=== PATIENT | male | born 1975 | race Caucasian/White ===

== ENCOUNTER 2020-01-01 19:01 | Emergency (ER) | payer BC, OTHER ==
[~2020-01-01] VITALS: Ht 180.3 cm; Wt 83.9 kg
[2020-01-01 20:01] LABS: HEMATOCRIT 44.8 % (42.0-52.0); HEMOGLOBIN 15.7 gm/dL (14.0-18.0); MCH 32.7 pg (26.0-34.0); MCV 93.5 fL (80.0-100.0); PLATELET COUNT 178 thou/uL (150-400); RDW 14.8 % (10.5-14.5); WBC 9.6 thou/uL (4.0-11.0)
[2020-01-01 20:07] LABS: POTASSIUM 3.4 mmol/L (3.5-5.1)
[2020-01-01 20:13] LABS: ALBUMIN 4.6 g/dL (3.4-5.0); TOTAL BILIRUBIN 0.8 mg/dL (0.2-1.0); TOTAL PROTEIN 8.4 g/dL (6.4-8.2)
[2020-01-01 20:33] LABS: ABSOLUTE NEUTROPHILS 7.9 thou/uL (1.4-8.2)
[2020-01-01 21:28] LABS: URINE BILIRUBIN NEGATIVE (Negative); URINE BLOOD 1+ (Negative); URINE CLARITY CLEAR; URINE COLOR YELLOW; URINE GLUCOSE-RANDOM* NEGATIVE (Negative); URINE KETONES NEGATIVE (Negative); URINE LEUKOCYTES-REFLEX NEGATIVE (Negative); URINE NITRITE-REFLEX NEGATIVE (Negative); URINE PROTEIN (DIPSTICK) NEGATIVE (Negative); URINE SPECIFIC GRAVITY <= 1.005 (1.005-1.035); URINE UROBILINOGEN 0.2 E.U./dl (0.2-1.0)
[2020-01-01 21:35] LABS: BACTERIA-REFLEX None Seen /HPF (None Seen); CASTS None Seen /LPF (None Seen); CRYSTALS None Seen /LPF (None Seen); MUCUS None Seen strn/LPF (None Seen); SQUAMOUS None Seen /LPF (0-3); URINE RBC 0-2 Rare /HPF (0-2); URINE WBC-REFLEX None Seen /HPF (0-5)
[2020-01-01] MEDS ORDERED: ZOFRAN ODT4 MG PO (21:57)
[2020-01-01 22:05] VITALS: BP 136/74
== END 2020-01-01 22:05 | disposition home or self-care (01) ==
LOC: ER 19:01
PROVIDERS: Emergency Medicine
DX: R50.9 Fever, unspecified (principal); R11.2 Nausea with vomiting, unspecified; Z88.1 Allergy status to other antibiotic agents; Z20.828 Contact with and (suspected) exposure to other viral communicable diseases

== ENCOUNTER 2020-06-30 15:32 | Emergency (ER) | payer BC, OTHER ==
[~2020-06-30] VITALS: Ht 180.3 cm; Wt 86.2 kg
[~2020-06-30 15:32] MED LIST: ZOFRAN ODT4 MG PO
[2020-06-30 16:34] LABS: ABSOLUTE NEUTROPHILS 9.6 thou/uL (1.4-8.2); BASOPHILS 0.4 % (0.0-2.0); HEMATOCRIT 46.1 % (42.0-52.0); HEMOGLOBIN 15.5 gm/dL (14.0-18.0); LYMPHOCYTES 6.6 % (24.0-44.0); MCH 32.2 pg (26.0-34.0); MCHC 33.6 g/dL (28.0-37.0); MCV 95.8 fL (80.0-100.0); MONOCYTES 9.4 % (1.0-8.0); PLATELET COUNT 238 thou/uL (150-400); POLYS 83.6 % (36.0-66.0); RBC 4.81 mil/uL (4.50-6.00); RDW 14.8 % (10.5-14.5); WBC 11.5 thou/uL (4.0-11.0)
[2020-06-30 16:42] LABS: CALCIUM 9.9 mg/dL (8.5-10.1); CREATININE 1.1 mg/dL (0.7-1.3); POTASSIUM 3.6 mmol/L (3.5-5.1)
[2020-06-30 16:48] LABS: ALBUMIN 4.9 g/dL (3.4-5.0); DIRECT BILIRUBIN 0.3 mg/dL (<0.1-0.2); TOTAL BILIRUBIN 1.4 mg/dL (0.2-1.0); TOTAL PROTEIN 8.7 g/dL (6.4-8.2)
[2020-06-30] MEDS ORDERED: ONDANSETRON HCL4 M2 PO (18:06)
[2020-06-30 18:10] VITALS: BP 155/92
--- NOTE | 2020-07-01 12:45 | EKG ---
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 : 1975 Requested By: Kingsley Zavala Order Number: [id number] MD: Francisco Forrester Measurements Intervals [place] Rate: 104 P: 44 MA: 137 QRS: -43 QRSD: 102 T: -19 QT: 346 QTc: 455 Interpretive Statements Sinus tachycardia Inferior infarct, old Poor R wave progression Baseline wander in lead(s) V1,V2 No previous ECG available for comparison Electronically Signed On 07-01-2020 12:45:14 [employer] by Francisco Forrester [email or web address] <ELECTRONICALLY SIGNED> By: Francisco Forrester MD, [facility] 07/01/20 1245 1652 1652 Francisco Forrester MD, FACC /EPI
== END 2020-06-30 18:30 | disposition home or self-care (01) ==
LOC: ER 15:32
PROVIDERS: Nurse Practitioner
DX: K52.9 Noninfective gastroenteritis and colitis, unspecified (principal); R11.2 Nausea with vomiting, unspecified; Z88.1 Allergy status to other antibiotic agents

== ENCOUNTER 2020-11-29 09:34 | Inpatient (IN) | payer BC, OTHER ==
[~2020-11-29] VITALS: Ht 180.3 cm; Wt 85.7 kg
[~2020-11-29 09:34] MED LIST changes: +ONDANSETRON HCL4 M2 PO
[2020-11-29 09:44] VITALS: BP 179/105
[2020-11-29 10:12] LABS: ABSOLUTE NEUTROPHILS 6.4 thou/uL (1.4-8.2); BASOPHILS 0.7 % (0.0-2.0); HEMATOCRIT 43.6 % (42.0-52.0); HEMOGLOBIN 14.9 gm/dL (14.0-18.0); MCH 33.5 pg (26.0-34.0); MCHC 34.1 g/dL (28.0-37.0); MCV 98.3 fL (80.0-100.0); MONOCYTES 6.4 % (1.0-8.0); PLATELET COUNT 178 thou/uL (150-400); POLYS 86.9 % (36.0-66.0); RBC 4.43 mil/uL (4.50-6.00); RDW 15.8 % (10.5-14.5); WBC 7.4 thou/uL (4.0-11.0)
[2020-11-29 10:26] LABS: ANION GAP 15 mmol/L (7-16); BUN 10 mg/dL (7-18); CALCIUM 9.1 mg/dL (8.5-10.1); CHLORIDE 95 mmol/L (98-107); CO2 25 mmol/L (21-32); GLUCOSE 143 mg/dL (74-106); POTASSIUM 4.1 mmol/L (3.5-5.1); SODIUM 135 mmol/L (136-145)
--- NOTE | 2020-11-29 10:27 | EKG ---
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1975 Requested By: Anni Chisholm Order Number: [id number] MD: Beck Souza Measurements Intervals [place] Rate: 108 P: 62 [place]: 136 QRS: 5 QRSD: 86 T: 30 QT: 312 QTc: 418 Interpretive Statements Sinus tachycardia ST elev, probable normal early repol pattern Compared to ECG 06/30/2020 16:52:13 ST (T wave) deviation now present Myocardial infarct finding no longer present Poor R-wave progression no longer present Electronically Signed On 11-29-2020 10:27:42 CDT by Beck Souza [email or web address] <ELECTRONICALLY SIGNED> By: Beck Souza MD, [facility] 11/29/20 1027 Beck Souza MD, FACC /EPI
[2020-11-29 10:36] LABS: ALBUMIN 4.4 g/dL (3.4-5.0); MAGNESIUM 1.3 mg/dL (1.8-2.4); SGOT 66 U/L (15-37); SGPT 75 U/L (16-63); TOTAL BILIRUBIN 0.5 mg/dL (0.2-1.0); TOTAL PROTEIN 8.1 g/dL (6.4-8.2); TROPONIN-I <0.06 ng/mL (<0.06)
[2020-11-29 11:42] LABS: URINE BILIRUBIN NEGATIVE (Negative); URINE BLOOD NEGATIVE (Negative); URINE CLARITY CLEAR; URINE COLOR YELLOW; URINE GLUCOSE-RANDOM* NEGATIVE (Negative); URINE KETONES NEGATIVE (Negative); URINE LEUKOCYTES-REFLEX NEGATIVE (Negative); URINE NITRITE-REFLEX NEGATIVE (Negative); URINE PROTEIN (DIPSTICK) TRACE (Negative); URINE UROBILINOGEN 0.2 E.U./dl (0.2-1.0)
[2020-11-29 11:51] LABS: AMP/METHAMP Negative (Negative); BARBITURATES Negative (Negative); BENZODIAZEPINES Negative (Negative); COCAINE Negative (Negative); METHADONE Negative (Negative); OPIATES Negative (Negative); PCP Negative (Negative)
[2020-11-29 18:32] VITALS: BP 146/98
[2020-11-29 19:50] VITALS: BP 155/105
[2020-11-30 04:05] VITALS: BP 149/93
[2020-11-30 06:23] LABS: CALCIUM 8.5 mg/dL (8.5-10.1); CREATININE 0.9 mg/dL (0.7-1.3); POTASSIUM 3.5 mmol/L (3.5-5.1)
[2020-11-30 07:41] VITALS: BP 154/107
[2020-11-30 14:57] VITALS: BP 148/11
[2020-11-30 19:17] VITALS: BP 149/106
[2020-12-01 04:25] VITALS: BP 143/96
[2020-12-01 05:50] LABS: CALCIUM 8.4 mg/dL (8.5-10.1); CREATININE 0.8 mg/dL (0.7-1.3); POTASSIUM 3.6 mmol/L (3.5-5.1)
[2020-12-01 07:13] VITALS: BP 128/92
[2020-12-01] MEDS ORDERED: VITAMIN B-1100 M2 PO (14:23)
[2020-12-01] MEDS ORDERED: PEPCID20 MG PO (14:23)
[2020-12-01 15:05] VITALS: BP 153/109
== END 2020-12-01 19:02 | DRG 897 ==
LOC: ER 09:34 → EROBS 16:15 → 3W 16:15
PROVIDERS: Emergency Medicine; ADMIT Hospitalist; ATTEND Hospitalist
DX: F10.239 Alcohol dependence with withdrawal, unspecified (principal); E83.42 Hypomagnesemia; F12.90 Cannabis use, unspecified, uncomplicated; I10 Essential (primary) hypertension; F10.229 Alcohol dependence with intoxication, unspecified; Z20.822 Contact with and (suspected) exposure to COVID-19; Z88.1 Allergy status to other antibiotic agents; Z82.49 Family history of ischemic heart disease and other diseases of the circulatory system; Z87.891 Personal history of nicotine dependence; W18.39XA Other fall on same level, initial encounter; Y93.89 Activity, other specified; Y92.89 Other specified places as the place of occurrence of the external cause; Y99.8 Other external cause status
CPT/HCPCS: 10879